=== PATIENT | female | born 1995 | race Caucasian/White ===

== ENCOUNTER 2019-06-06 07:00 | Inpatient (IN) | payer OTHER, SELFPAY ==
[2013-07-11 07:27] VITALS: BMI 41.5
[2019-06-06] VITALS (38 sets, daily range): BP systolic 115–149; BP diastolic 59–88; PULSE 83–122; TEMP 36.3–37; O2SAT 97–100; BMI 44.1
[2019-06-06] MEDS: Lactated Ringers 1,000 ML 50 ML IV (07:57)
[2019-06-06 08:20] LABS: Absolute Lymphocyte Count 2.16 X10^3/uL (0.83-4.51); Absolute Neutrophil Count 5.5 X10^3/uL (2.0-7.7); Basophil# 0.03 X10^3/uL; Basophil% 0.4 % (0-1); Eosinophils% 1.2 % (0-5); Hematocrit 30.5 % (37-47); Hemoglobin 9.7 g/dL (12.0-15.0); Lymphocyte # 2.16 X10^3/ul (4.0); Lymphocyte % 25.4 % (19-41); Mean Corp Hgb Conc 31.8 g/dL (32-36); Mean Corpuscular Hgb 25.1 pg (27.0-32.0); Mean Corpuscular Volume 78.8 fL (81-99); Mean Platelet Vol. 11.3 fl (6.2-12.0); Monocyte# 0.59 X10^3/uL; Monocyte% 6.9 % (0-10); NRBC Flagged by Analyzer 0 % (0-5); Neutrophil # 5.54 X10^3/uL (2.7-7.7); Platelet Count 213 K/mm3 (150-450); RBC Distribution Width CV 13.9 % (11.6-14.6); RBC Distribution Width SD 39.5 fl (35.1-43.9); Red Blood Count 3.87 M/mm3 (4.2-5.4); White Blood Count 8.5 K/mm3 (4.4-11.0)
--- NOTE | 2019-06-06 08:34 | PCM.HP.OB ---
- Problem List (1) 41 weeks gestation of Status: Acute (2) Obesity affecting Status: Acute History Date of Admission: 06/06/19 Final ERMIAS: 05/30/19 Gestational age: 41 Weeks and 0 Days History of this : This is a 24 year-old, at 41 weeks gestational age here for induction of labor. Patient denies any loss of fluid, vaginal bleeding or contractions. Positive movement. Allergies No Known Allergies Allergy (Verified 07/11/13 01:15) Home Medications: Home Medications Vits [Prenatabs FA ] 1 tablet PO DAILY 07/11/13 Calcium Carbonate [Tums Ultra] 400 mg PO QHS 06/06/19 Smoking Status: Never smoker Alcohol: None Number of Fetus(es): 1 NST - FHR Rate Baby A Baseline: 135 Variability:: Moderate Accelerations:: 15 x 15 Decelerations:: None FHR Category:: Category I Uterine Activity:: irregular contractions History Past Pregnancies: Past Pregnancies Delivery Date Name GA/ Weeks Outcome Route Wt Sex Labor Length Anesthesia Delivery Location Provider FOB Labs: O+ Rubella - Immune HB - HIV- NR Syp- NR GC/C- GBS- Expected Delivery Method: Spontaneous Vaginal Review of Systems Constitutional: Denies: Anorexia, Fever Cardiovascular: Denies: Chest Pain Respiratory: Denies: Cough, Shortness of Breath Gastrointestinal: Denies: Abdominal Pain Genitourinary: Denies: Dysuria Neurological: Denies: Blurred vision Psychiatric: Denies: Anxiety Physical Exam General: Alert, Cooperative Cardiovascular: Regular rate Lungs: Normal air movement Abdomen: Gravid, Obese Neurological: Cranial nerves II-XII grossly intact Cervix Dilation (cm): 1 Station: -3 Effacement (%): 60 Assessment/Plan All Active Problems 41 weeks gestation of (Acute) Obesity affecting (Acute) Physical exam, pre-employment (Acute) This is a 24 year-old, at 41 weeks gestational age for induction of labor 1) Admit to Labor and Delivery 2) Start pitocin IV and titrate 3) Continuous EFM, TOCO 4) Anticipate
[2019-06-06] MEDS: Oxytocin 30 units/NS 500 ml 30 UNITS/500 ML IV.SOLN IV (09:11)
[2019-06-06] MEDS: 0.9% Normal Saline Single 100 ML IV.SOLN. IY (12:58)
--- NOTE | 2019-06-06 18:57 | PCM.PN.BLA ---
Progress Note At bedside to check patient. Cervix 4 cm dilated and baby ballotable. Unable to rupture membranes at this time. We will recheck in a few hours. STROKE Vital Signs/Narrative: Vital Signs Temp Pulse BP Pulse Ox 06/06/19 18:44 98.6 F 99 06/06/19 18:43 100 134/88 H 06/06/19 17:53 95 128/70 H 98 06/06/19 17:02 97.9 F 95 124/83 H 98 06/06/19 15:31 98.4 F 110 H 129/80 H 97 06/06/19 15:28 98.5 F
[2019-06-06] MEDS: Lactated Ringers 500 ML 999 ML IV ×2 (21:02→23:09)
--- NOTE | 2019-06-06 21:10 | PCM.PN.BLA ---
Progress Note he is uncomfortable with contractions. S/p Pitocin break. Pitocin is now at 10 milliunits/min. Cervix 4/80/-2 and now anterior. head well applied. AROM performed for clear fluid. IUPC and FSE placed. Category 1 tracing. STROKE Vital Signs/Narrative: Vital Signs Temp Pulse BP Pulse Ox 06/06/19 21:06 98.6 F 96 128/77 H 06/06/19 20:31 98.2 F 06/06/19 20:30 102 H 132/78 H 06/06/19 19:51 98.6 F 06/06/19 19:49 101 H 129/71 H 06/06/19 18:44 98.6 F 99 06/06/19 18:43 100 134/88 H 06/06/19 17:53 95 128/70 H 98
[2019-06-06] MEDS: Ondansetron 4 MG/2 ML Vial IV (21:23)
[2019-06-06] MEDS: fentaNYL-bupivacaine (epidural) 100 ML BAG EPIDURAL (22:03)
[2019-06-07] VITALS (40 sets, daily range): BP systolic 105–165; BP diastolic 56–90; PULSE 69–130; RESP 14–20; TEMP 36.2–37; O2SAT 93–100
[2019-06-07] MEDS: Lactated Ringers 1,000 ML 200 ML IV (00:42)
[2019-06-07] MEDS: Ondansetron 4 MG/2 ML Vial IV (01:35)
[2019-06-07] MEDS: Oxytocin 30 units/NS 500 ml 30 UNITS/500 ML IV.SOLN 334 UNITS IV (04:37)
[2019-06-07] MEDS: Methylergonovine 0.2 MG/ML Ampul IM (04:39)
[2019-06-07] MEDS: miSOPROStol 200 MCG Tablet 1000 MCG RECTAL (04:44)
--- NOTE | 2019-06-07 04:53 | OP.PCM_ITS ---
Problem List (1) Multiparous Status: Acute (2) 41 weeks gestation of Status: Acute (3) Obesity affecting Status: Acute Report of Operation Date of Procedure: 06/07/19 Pre-Operative Diagnosis: 41 wk gestation, multiparous patient, obesity Post-Operative Diagnosis: As above Surgery/Procedure Performed:: Description of Surgical Findings:: Viable female cephalic presentation. Intact and normal-appearing placenta with three-vessel cord. Nuchal cord x2. Type of Anesthesia:: Epidural Special Medications: Methergine, cytotec Specimen's removed: Placenta Drains: None Estimated Blood Loss (mL): 400 Description of Procedure: Patient complete and pushing. Head delivered without any force or delay and a loose nuchal cord x2 was noted and reduced. Anterior shoulder, posterior shoulder, followed by body were delivered without any force or delay. Viable female was delivered atraumatically and placed on maternal abdomen. Cord was clamped and cut immediately and the infant was handed off to the nursery staff. Blood and cord gases were obtained. Placenta was delivered with fundal massage. Placenta was noted to be intact and normal-appearing with a three- vessel cord. The uterus was boggy and Pitocin was started. The uterus was explored x1 and cleared of all clot. The uterus remained boggy therefore Met hergine x1 was given. With the Pitocin, Methergine, and uterine massage the uterus firmed up. Fundus was firm and bleeding was hemostatic. Total EBL was 400 cc. No lacerations noted. Rectal Cytotec was placed. Instrument and sponge counts were correct and vaginal sweep was performed. Grafts/Implants Used: None - Complications None - Admit VTE Documentation VTE Present on Admission: No Vaginal Delivery Maternal Presentation: Medically Indicated Induction Method of Induction: Pitocin, Dela Cruz Bulb, Amniotomy Amniotic Membrane Rupture Type: Artificial Amniotic Fluid Description: Clear Surgery/ Procedure Performed: Spontaneous Vaginal Delivery Type of Anesthesia: Epidural Presentation: Vertex Placental Delivery Description: Expressed Cord Vessel Description: 3 Vessels Nuchal Cord Compression: Without compression Cord Gases drawn per routine: ABG, VBG Cord Entanglement: Around neck x 2, loose A gender: Female (1 minute): 7 (5 minute): 9 Episiotomy Description: None Laceration: None Medications given after delivery: IV Pitocin, IM Methergin, - - Cytotec Complications: None
[2019-06-08] VITALS: BP 114/69; PULSE 86; RESP 18; TEMP 35.9
[2019-06-08 05:30] VITALS: BP 115/60; PULSE 81; RESP 18; TEMP 36.2
[2019-06-08 07:45] VITALS: BP 134/79; PULSE 91; RESP 18; TEMP 36.4
--- NOTE | 2019-06-08 07:56 | DCINST_ITS ---
Discharge Diet: No Restrictions Discharge Activity: May Drive, May Shower, May Take a Tub Bath May resume sexual activity in: 6 weeks Ice area for (Minutes): 15 Weight Bearing Status: Weight bearing as tolerated Lifting Restrictions: None Call your doctor if you observe: Fever of 101 or Higher, Inability to urinate, Inability to have a bowel movement, Using more than one pad per hour, Shortness of breath, Dizziness, Chest pain, Increased palpitations (irregular heartbeat), Calf discomfort, Uncontrolled pain Instructions: After a Vaginal Additional Instructions: If you experience any of the following, contact your healthcare provider. * Bleeding that soaks a pad every hour for 2 hours * Fever 100.4 or higher * Unrelieved incision or abdominal pain * Swelling, redness, discharge or bleeding from your incision or episiotomy site * Your incision begins to separate * Problems urinating (including inability to urinate or burning while urinating). * Visual changes * Severe headache * Flu-like symptoms * Pain or redness in one of both of your breasts * Pain, warmth, tenderness or swelling in your legs, especially the calf area * Frequent nausea and vomiting * Symptoms of depression or anxiety If you experience any of the following, call 911 or go to the nearest Emergency Room. * Chest pain * Problems breathing * Seizure activity * Partial or complete paralysis of a body part, slurred speech, weakness or drooping of the face, or a sudden inability to walk or hold your balance Allergies/Adverse Reactions: Allergies No Known Allergies Allergy (Verified 07/11/13 01:15) Medications to take at Discharge Vits [Prenatabs FA ] 1 tablet PO DAILY 07/11/13 Calcium Carbonate [Tums Ultra] 400 mg PO QHS 06/06/19 Please Follow Up With: Yanet Muhammad DO When: In 1-2 weeks for virtual visit, and 6 weeks for virtual visit. Primary Care Physician: Bhavana Wick MD [Primary Care Provider] - Test Results: Test results from this visit will be discussed in further detail at your follow- up appointment, if applicable.
--- NOTE | 2019-06-08 07:59 | PCM.PN.OB ---
Patient Problems: Active and Suspected Problems 41 weeks gestation of (Acute) Obesity affecting (Acute) Multiparous (Acute) Subjective: Patient doing well. Denies lightheadedness, dizziness, chest pain, shortness of breath, leg pain. Ambulating voiding without difficulty. Lochia normal. Bottlefeeding. Pain controlled. She has no complaints morning and feels ready to go. - Physical Exam Vitals/I&O's: Vital Signs Temp Pulse Resp BP Pulse Ox 97.2 F L 81 18 115/60 95 06/08/19 05:30 06/08/19 05:30 06/08/19 05:30 06/08/19 05:30 06/07/19 16:10 Oxygen Delivery Method Room Air Weight: 265 lb Body Mass Index (BMI) 44.1 Intake and Output for Last 24 Hours 06/06/19 06/07/19 06/08/19 23:59 23:59 23:59 Intake Total 3183.60 / 3231.60 1437.42 / 1437.42 Output Total 1525 / 1525 350 / 350 Balance 1658.60 / 1706.60 1087.42 / 1087.42 General: Alert, No apparent distress HEENT: Atraumatic Skin: No rashes Neurological: Neuro grossly intact Psych/Mental Status: Normal Affect, Appropriate Current Medications Acetaminophen (Tylenol) 1,000 mg PO Q8H PRN PRN PRN Reason: Pain Score 1-3/10 Bisacodyl (Dulcolax) 10 mg RECTAL UD PRN PRN Reason: If no BM Dibucaine (Dibucaine) 1 applic TOPICAL TID PRN PRN; Protocol PRN Reason: Discomfort Hydrocortisone (Hytone) 1 applic TOPICAL TID PRN PRN; Protocol PRN Reason: Discomfort Ibuprofen (Motrin) 600 mg PO Q6H PRN PRN PRN Reason: Pain Score 1-3/10 Methylergonovine Maleate (Methergine) 0.2 mg IM X1 PRN PRN Reason: Excess bleeding/uterine atony Last Admin: 06/07/19 04:39 Dose: 0.2 mg Documented by: Ondansetron HCl (Zofran) 4 mg IV Q4H PRN PRN PRN Reason: Nausea Senna/Docusate Sodium (Senokot-S, Jacinta-Colace) 1 - 2 tablet PO DAILY PRN PRN PRN Reason: Constipation Simethicone (Mylicon) 80 mg PO PCHS PRN PRN Reason: Indigestion/Stomach pain Sodium Chloride () 5 - 15 ml IV UD PRN PRN Reason: SALINE FLUSH Medical Necessity - Tobacco Use Smoking Status: Never smoker Assessment/Plan All Active Problems 41 weeks gestation of (Acute) Obesity affecting (Acute) Multiparous (Acute) Physical exam, pre-employment (Acute) She is day 1 from a spontaneous vaginal delivery. Meeting all milestones to go home and she feels ready to go home. Reviewed discharge instructions. Baby is getting transferred to [facility]. Bottle Feeding.
== END 2019-06-08 08:10 | disposition home or self-care (01) | DRG 807 ==
PROVIDERS: Advanced Practice Midwife; Admitting Provider Obstetrics & Gynecology; PCP Internal Medicine; Referring Provider Obstetrics & Gynecology; Visit Provider Obstetrics & Gynecology
DX: O48.0 Post-term pregnancy (principal); Z37.0 Single live birth; O62.2 Other uterine inertia; O69.81X0 Labor and delivery complicated by cord around neck, without compression, not applicable or unspecified; O99.214 Obesity complicating childbirth; E66.9 Obesity, unspecified; Z3A.41 41 weeks gestation of pregnancy
CPT/HCPCS: 59025; 59050; 85025; 86850; 86900; 86901; 99218; J7120; G0378; J2405

== ENCOUNTER → 2023-04-18 | Outpatient (CLI) | payer SELFPAY ==
[2023-04-18 17:32] LABS: Absolute Lymphocyte Count 2.14 X10^3/uL (0.83-4.51); Basophil# 0.09 X10^3/uL; Basophil% 1.4 % (0-1); Eosinophil# 0.63 X10^3/uL; Hematocrit 41.5 % (37-47); Hemoglobin 13.3 g/dL (12.0-15.0); Lymphocyte # 2.14 X10^3/ul (0.83-4.51); Lymphocyte % 33.9 % (19-41); Mean Corpuscular Hgb 28.4 pg (27.0-32.0); Mean Corpuscular Volume 88.7 fL (81-99); Mean Platelet Vol. 10.7 fl (6.2-12.0); Monocyte# 0.45 X10^3/uL; Monocyte% 7.1 % (0-10); NRBC Flagged by Analyzer 0 % (0-5); Neutrophil # 2.99 X10^3/uL (2.7-7.7); Neutrophil % 47.3 % (47-70); Platelet Count 252 K/mm3 (150-450); RBC Distribution Width CV 12.6 % (11.6-14.6); RBC Distribution Width SD 41.4 fl (35.1-43.9); Red Blood Count 4.68 M/mm3 (4.2-5.4); White Blood Count 6.3 K/mm3 (4.4-11.0)
[2023-04-18 17:55] LABS: Vitamin D,25 Hydroxy 30.3 ng/mL
[2023-04-18 18:24] LABS: ALB/GLOB Ratio 1.1 RATIO (0.9-2.4); AST(SGOT) 22 U/L (15-37); Alanine Aminotransfer ALT/SGPT 33 U/L (13-56); Albumin, Serum 3.8 g/dL (3.2-5.0); Alkaline Phosphatase 75 U/L (45-117); Anion Gap 2 (5-15); BUN 11 mg/dL (7-18); BUN/Creat Ratio 15.6 RATIO (10-20); Calcium,Total 9.2 mg/dL (8.5-10.1); Chloride 108 mmol/L (98-107); Creatinine, Serum 0.71 mg/dL (0.55-1.02); EST Glomerular Filtration Rate 104 mL/min (>60); Est Glom Filt Rate - Afr Amer 126 mL/min (>60); Globulin 3.6 g/dL (2.2-4.2); Glucose 97 mg/dL (74-106); Potassium 3.8 mmol/L (3.5-5.1); Protein, Total 7.4 g/dL (6.4-8.2); Sodium Level 137 mmol/L (136-145); Thyroid Stim Hormone (TSH) 0.69 uIU/mL (0.358-3.74)
== END | disposition home or self-care (01) ==
LOC: MFPLAB 16:00
PROVIDERS: PCP Internal Medicine; Visit Provider Family Medicine
DX: E66.9 Obesity, unspecified (principal); R53.83 Other fatigue
CPT/HCPCS: 36415; 80053; 82306; 84443; 85025